=== PATIENT | female | born 1955 | race Caucasian/White ===

== ENCOUNTER 2019-02-04 16:04 | Emergency (ER) | payer MEDICARE, OTHER ==
[~2019-02-04] VITALS: Ht 157.5 cm; Wt 70.4 kg
[2019-02-04] MEDS ORDERED: IPRA4AER IH (16:27)
[2019-02-04 17:04] LABS: BASOPHILS % (AUTO) 0.4 % (0.0-2.0); EOSINOPHILS % (AUTO) 1.3 % (1.0-6.0); HEMATOCRIT 37.6 % (36-46); HEMOGLOBIN 12.6 g/dL (12.0-16.0); LYMPHOCYTES # (AUTO) 1.6 K/uL (1.0-4.8); LYMPHOCYTES % (AUTO) 27.9 % (22.0-44.0); MEAN CORPUSCULAR HEMOGLOBIN 30.1 pg (26.0-34.0); MEAN CORPUSCULAR HGB CONC 33.5 G/dL (31.0-37.0); MEAN CORPUSCULAR VOLUME 90 fL (80-100); MONOCYTES # (AUTO) 0.4 K/uL (0.1-1.0); MONOCYTES % (AUTO) 6.5 % (2.0-9.0); NEUTROPHILS # (AUTO) 3.7 K/uL (1.8-7.7); NEUTROPHILS % (AUTO) 63.9 % (40.0-70.0); PLATELET COUNT (AUTO) 234 K/uL (150-450); RED BLOOD CELL COUNT(AUTO) 4.19 MIL/uL (4.00-5.20); RED CELL DISTRIBUTION WIDTH 13.8 % (11.5-14.5)
[2019-02-04 17:18] LABS: ANION GAP 6 mmol/L (8-16); CALCIUM, TOTAL 9.1 mg/dL (8.8-10.5); CARBON DIOXIDE 29 mmol/L (22-29); CHLORIDE 106 mmol/L (98-107); CREATININE 0.89 mg/dL (0.60-1.30); GLOMERULAR FILTR. RATE CALC > 60 mL/min (>60); GLUCOSE,RANDOM 111 mg/dL (70-110); POTASSIUM 4.3 mmol/L (3.5-5.1); SODIUM SERUM 141 mmol/L (136-145); UREA NITROGEN, BLOOD 9 mg/dL (7-18)
[2019-02-04 17:24] LABS: ALANINE AMINOTRANSFERASE 19 U/L (12-78); ALBUMIN 3.3 g/dL (3.4-5.0); ALKALINE PHOSPHATASE 62 U/L (46-116); ASPARTATE AMINOTRANSFERASE 17 U/L (15-37); BILIRUBIN,TOTAL 0.2 mg/dL (0.1-1.0); TOTAL PROTEIN, SERUM 6.4 g/dL (6.4-8.2)
[2019-02-04] MEDS ORDERED: PB/HYOSCY/ATR/SCOP/LIDO/MAALOX 55 ML BOTTLE PO ONE (18:00)
[2019-02-04 19:00] VITALS: BP 138/81
== END 2019-02-04 19:35 | disposition home or self-care (01) ==
LOC: EMS 16:04
DX: K21.9 Gastro-esophageal reflux disease without esophagitis (principal); F41.9 Anxiety disorder, unspecified; J45.909 Unspecified asthma, uncomplicated
CPT/HCPCS: 93005

== ENCOUNTER 2019-10-13 17:23 | Emergency (ER) | payer MEDICARE ==
[~2019-10-13] VITALS: Ht 157.5 cm; Wt 75.0 kg
[~2019-10-13 17:23] MED LIST: IPRA4AER IH
[2019-10-13] MEDS ORDERED: RISP1 PO (17:29)
[2019-10-13] MEDS ORDERED: BENZ2TAB10 PO (17:29)
[2019-10-13] MEDS ORDERED: FLUO-191 PO (17:29)
[2019-10-13 21:30] VITALS: BP 122/82
[2019-10-13] MEDS ORDERED: IPRATROPIUM BROMIDE 0.5 MG/2.5 ML NEB SOLUTION NEB ONE (21:45)
[2019-10-13] MEDS ORDERED: ALBUTEROL SULFATE 2.5 MG/0.5 ML NEB SOLUTION NEB ONE (21:45)
== END 2019-10-13 21:58 | disposition home or self-care (01) ==
LOC: EMS 17:25
DX: J40 Bronchitis, not specified as acute or chronic (principal); J44.9 Chronic obstructive pulmonary disease, unspecified; Z79.899 Other long term (current) drug therapy

== ENCOUNTER 2022-01-31 21:51 | Inpatient (IN) | payer OTHER, MEDICAID ==
[~2022-01-31] VITALS: Ht 154.9 cm; Wt 73.8 kg
[~2022-01-31 21:51] MED LIST changes: +BENZ2TAB76 PO; +FLUO-177 PO; +RISP1TAB48 PO
[2022-01-31] MEDS ORDERED: ACETAMINOPHEN 500 MG TABLET PO ONE (22:30)
[2022-01-31] MEDS ORDERED: PANTOPRAZOLE SODIUM 40 MG/VIAL IVP ONE (22:30)
[2022-01-31 23:01] LABS: COVID AG,FIA SOURCE NASOPHARYNGEAL
[2022-01-31 23:04] LABS: BASOPHILS % (AUTO) 0.3 % (0.0-2.0); EOSINOPHILS % (AUTO) 0 % (1.0-6.0); HEMATOCRIT 40.9 % (36-46); LYMPHOCYTES % (AUTO) 9.1 % (22.0-44.0); MEAN CORPUSCULAR HEMOGLOBIN 29.5 pg (26.0-34.0); MEAN CORPUSCULAR HGB CONC 34.2 G/dL (31.0-37.0); MEAN CORPUSCULAR VOLUME 86 fL (80-100); MONOCYTES # (AUTO) 0.9 K/uL (0.1-1.0); MONOCYTES % (AUTO) 8.1 % (2.0-9.0); NEUTROPHILS # (AUTO) 8.8 K/uL (1.8-7.7); NEUTROPHILS % (AUTO) 82.5 % (40.0-70.0); PLATELET COUNT (AUTO) 244 K/uL (150-450); RED BLOOD CELL COUNT(AUTO) 4.75 MIL/uL (4.00-5.20); RED CELL DISTRIBUTION WIDTH 14.2 % (11.5-14.5)
[2022-01-31 23:11] LABS: ANION GAP 11 mmol/L (8-16); CALCIUM, TOTAL 8.5 mg/dL (8.8-10.5); CARBON DIOXIDE 24 mmol/L (22-29); CHLORIDE 100 mmol/L (98-107); CREATININE 0.89 mg/dL (0.60-1.30); GLOMERULAR FILTR. RATE CALC > 60 mL/min (>60); GLUCOSE,RANDOM 126 mg/dL (70-110); POTASSIUM 3.1 mmol/L (3.5-5.1); SODIUM SERUM 135 mmol/L (136-145); UREA NITROGEN, BLOOD 9 mg/dL (7-18)
[2022-01-31 23:18] LABS: ALANINE AMINOTRANSFERASE 15 U/L (12-78); ALBUMIN 3.6 g/dL (3.4-5.0); ALKALINE PHOSPHATASE 65 U/L (46-116); ASPARTATE AMINOTRANSFERASE 18 U/L (15-37); BILIRUBIN,TOTAL 1.1 mg/dL (0.1-1.0); INR 1.2 (0.9-1.1); LIPASE 38 U/L (73-393); PROTHROMBIN TIME 12.2 SEC (9.4-11.6); TOTAL PROTEIN, SERUM 7.1 g/dL (6.4-8.2)
[2022-01-31] MEDS ORDERED: POTASSIUM CHLORIDE 20 MEQ ER TABLET PO ONE (23:30)
[2022-02-01] MEDS ORDERED: ONDANSETRON HCL 4 MG/2 ML VIAL IVP ONE
[2022-02-01] MEDS: RINGERS SOLUTION,LACTATED 1,000 ML IV SCH ×2 (00:01→13:20)
[2022-02-01 00:22] LABS: PHOSPHORUS 2.2 mg/dL (2.5-4.9)
[2022-02-01] MEDS ORDERED: LIDOCAINE 5% TRANSDERMAL PATCH TD ONE (01:30)
[2022-02-01] MEDS ORDERED: MAGNESIUM SULFATE 4 GM/WATER 100 ML IV PRN (02:45)
[2022-02-01] MEDS ORDERED: POTASSIUM CHL 10 MEQ/WATER 50 ML IV PRN (02:45)
[2022-02-01] MEDS ORDERED: MAGNESIUM SULFATE 2 GM/WATER 50 ML IV PRN (02:45)
[2022-02-01] MEDS ORDERED: MAGNESIUM OXIDE 400 MG TABLET PO PRN (02:45)
[2022-02-01 03:24] LABS: APPEARANCE,URINE CLEAR (CLEAR); BILIRUBIN,URINE NEGATIVE (NEGATIVE); GLUCOSE, URINE (UA) NEGATIVE (NEGATIVE); LEUKOCYTE ESTERASE ,URINE SMALL (NEGATIVE); NITRATE,URINE NEGATIVE (NEGATIVE); OCCULT BLOOD,URINE MODERATE (NEGATIVE); PROTEIN,URINE 30-70 mg/dL (NEGATIVE); SPECIFIC GRAVITIY, URINE 1.017 (1.003-1.030); UROBILINOGEN,URINE <=1.0 mg/dL (<=1.0)
[2022-02-01 03:31] LABS: AMPHET/METH SCREEN,URINE NEGATIVE (NEGATIVE); BARBITURATE SCREEN, URINE NEGATIVE (NEGATIVE); BENZODIAZEPINES SCREEN,URINE NEGATIVE (NEGATIVE); CANNABINOID SCREEN,URINE POSITIVE (NEGATIVE); COCAINE SCREEN,URINE NEGATIVE (NEGATIVE); METHADONE SCREEN, URINE NEGATIVE (NEGATIVE); OPIATE SCREEN,URINE POSITIVE (NEGATIVE)
[2022-02-01 03:32] LABS: PHENCYCLIDINE SCREEN,URINE NEGATIVE (NEGATIVE)
[2022-02-01 03:37] LABS: BACTERIA,URINE None Seen /HPF (None Seen)
[2022-02-01] MEDS ORDERED: MORPHINE SULFATE 2 MG/ML SYRINGE IVP ONE (03:45)
[2022-02-01] MEDS: MORPHINE SULFATE 2 MG/ML SYRINGE IVP PRN ×2 (04:07→08:34)
[2022-02-01] MEDS: CefTRIAXone 1 GM/DEXTROSE 50 ML IV SCH (06:11)
[2022-02-01] MEDS: PANTOPRAZOLE SODIUM 40 MG/VIAL IVP SCH ×2 (08:17→23:03)
[2022-02-01] MEDS: FLUoxetine HCL 20 MG CAPSULE PO SCH (09:00)
[2022-02-01] MEDS: RisperiDONE 1 MG TABLET PO SCH ×2 (09:00→22:57)
[2022-02-01] MEDS: BENZTROPINE MESYLATE 2 MG TABLET PO SCH ×2 (09:00→23:03)
[2022-02-01] MEDS ORDERED: FentaNYL CITRATE PF 100 MCG/2 ML VIAL ONE (12:12)
[2022-02-01] MEDS ORDERED: MIDAZOLAM HCL 5 MG/ML VIAL ONE (12:12)
[2022-02-01] MEDS ORDERED: TRAZ-257 PO (12:19)
[2022-02-01] MEDS ORDERED: AMAN100C15 PO (12:19)
[2022-02-01] MEDS ORDERED: UMEC62.5 IH (12:19)
[2022-02-01] MEDS ORDERED: VALB40CA2 PO (12:19)
[2022-02-01] MEDS ORDERED: OMEP20CA12 PO (12:19)
[2022-02-01] MEDS ORDERED: QUET50TA24 PO (12:19)
[2022-02-01] MEDS ORDERED: BUDE10.2 IH (12:19)
[2022-02-01] MEDS ORDERED: BACL10TA PO (12:19)
[2022-02-01] MEDS ORDERED: FLUO-176 PO (12:19)
[2022-02-01 21:04] VITALS: BP 133/80
[2022-02-02] MEDS: RINGERS SOLUTION,LACTATED 1,000 ML IV SCH ×2 (02:40→16:00)
[2022-02-02 04:20] VITALS: BP 127/81
[2022-02-02] MEDS: CefTRIAXone 1 GM/DEXTROSE 50 ML IV SCH (06:15)
[2022-02-02] MEDS ORDERED: SODIUM CHLORIDE 0.9% 100 ML ONE (06:16)
[2022-02-02 06:50] LABS: BASOPHILS % (AUTO) 0.4 % (0.0-2.0); EOSINOPHILS % (AUTO) 0.7 % (1.0-6.0); HEMATOCRIT 33.7 % (36-46); HEMOGLOBIN 11.6 g/dL (12.0-16.0); LYMPHOCYTES # (AUTO) 1.6 K/uL (1.0-4.8); LYMPHOCYTES % (AUTO) 24.7 % (22.0-44.0); MEAN CORPUSCULAR HEMOGLOBIN 29.8 pg (26.0-34.0); MEAN CORPUSCULAR HGB CONC 34.4 G/dL (31.0-37.0); MEAN CORPUSCULAR VOLUME 87 fL (80-100); MONOCYTES # (AUTO) 0.7 K/uL (0.1-1.0); MONOCYTES % (AUTO) 10.5 % (2.0-9.0); NEUTROPHILS # (AUTO) 4.2 K/uL (1.8-7.7); NEUTROPHILS % (AUTO) 63.7 % (40.0-70.0); PLATELET COUNT (AUTO) 170 K/uL (150-450); RED BLOOD CELL COUNT(AUTO) 3.89 MIL/uL (4.00-5.20); RED CELL DISTRIBUTION WIDTH 14.6 % (11.5-14.5)
[2022-02-02 07:02] LABS: ANION GAP 10 mmol/L (8-16); CALCIUM, TOTAL 8.2 mg/dL (8.8-10.5); CARBON DIOXIDE 26 mmol/L (22-29); CHLORIDE 101 mmol/L (98-107); CREATININE 0.74 mg/dL (0.60-1.30); GLOMERULAR FILTR. RATE CALC > 60 mL/min (>60); GLUCOSE,RANDOM 98 mg/dL (70-110); POTASSIUM 3.2 mmol/L (3.5-5.1); SODIUM SERUM 137 mmol/L (136-145); UREA NITROGEN, BLOOD 9 mg/dL (7-18)
[2022-02-02 08:06] VITALS: BP 124/71
[2022-02-02] MEDS: RisperiDONE 1 MG TABLET PO SCH ×2 (08:18→20:48)
[2022-02-02] MEDS: BENZTROPINE MESYLATE 2 MG TABLET PO SCH ×2 (08:18→20:48)
[2022-02-02] MEDS: PANTOPRAZOLE SODIUM 40 MG/VIAL IVP SCH ×2 (08:18→20:48)
[2022-02-02] MEDS: FLUoxetine HCL 20 MG CAPSULE PO SCH (08:18)
[2022-02-02] MEDS: POTASSIUM CHLORIDE 20 MEQ ER TABLET PO PRN ×2 (08:19→16:45)
[2022-02-02] MEDS: MORPHINE SULFATE 2 MG/ML SYRINGE IVP PRN (14:53)
[2022-02-02 15:55] VITALS: BP 119/61
[2022-02-02] MEDS ORDERED: OXYB-34 PO (18:25)
[2022-02-02] MEDS ORDERED: ALBU8HFA IH (18:25)
[2022-02-02] MEDS ORDERED: HALOPERIDOL LACTATE 5 MG/ML VIAL IM ONE ×2 (18:30→22:00)
[2022-02-02 19:18] VITALS: BP 124/66
[2022-02-02] MEDS: TraZODone HCL 100 MG TABLET PO SCH (20:48)
[2022-02-03 03:42] VITALS: BP 115/62
[2022-02-03] MEDS: RINGERS SOLUTION,LACTATED 1,000 ML IV SCH ×2 (05:20→18:40)
[2022-02-03] MEDS: CefTRIAXone 1 GM/DEXTROSE 50 ML IV SCH (06:00)
[2022-02-03 07:08] VITALS: BP 127/74
[2022-02-03] MEDS: RisperiDONE 1 MG TABLET PO SCH ×2 (07:59→20:58)
[2022-02-03] MEDS: FLUoxetine HCL 20 MG CAPSULE PO SCH (07:59)
[2022-02-03] MEDS: BENZTROPINE MESYLATE 2 MG TABLET PO SCH ×2 (07:59→20:57)
[2022-02-03] MEDS: PANTOPRAZOLE SODIUM 40 MG/VIAL IVP SCH (07:59)
[2022-02-03] MEDS ORDERED: POTASSIUM PHOS,M-BASIC-D-BASIC 20 MEQ in DEXTROSE 5%-WATER 100 ML IV ONE (12:00)
[2022-02-03] MEDS ORDERED: CefTRIAXone SODIUM 1 GM/VIAL IM ONE ×2 (12:15→14:15)
[2022-02-03 12:53] LABS: BASOPHILS % (AUTO) 0.5 % (0.0-2.0); EOSINOPHILS % (AUTO) 0.4 % (1.0-6.0); HEMATOCRIT 35.8 % (36-46); HEMOGLOBIN 11.9 g/dL (12.0-16.0); LYMPHOCYTES # (AUTO) 1.8 K/uL (1.0-4.8); LYMPHOCYTES % (AUTO) 21.2 % (22.0-44.0); MEAN CORPUSCULAR HEMOGLOBIN 29.3 pg (26.0-34.0); MEAN CORPUSCULAR HGB CONC 33.3 G/dL (31.0-37.0); MEAN CORPUSCULAR VOLUME 88 fL (80-100); MONOCYTES # (AUTO) 0.8 K/uL (0.1-1.0); MONOCYTES % (AUTO) 9.2 % (2.0-9.0); NEUTROPHILS # (AUTO) 5.9 K/uL (1.8-7.7); NEUTROPHILS % (AUTO) 68.7 % (40.0-70.0); PLATELET COUNT (AUTO) 205 K/uL (150-450); RED BLOOD CELL COUNT(AUTO) 4.06 MIL/uL (4.00-5.20); RED CELL DISTRIBUTION WIDTH 14.5 % (11.5-14.5)
[2022-02-03 13:10] LABS: ANION GAP 9 mmol/L (8-16); CALCIUM, TOTAL 9.8 mg/dL (8.8-10.5); CARBON DIOXIDE 23 mmol/L (22-29); CHLORIDE 104 mmol/L (98-107); CREATININE 0.85 mg/dL (0.60-1.30); GLOMERULAR FILTR. RATE CALC > 60 mL/min (>60); GLUCOSE,RANDOM 132 mg/dL (70-110); POTASSIUM 4.1 mmol/L (3.5-5.1); SODIUM SERUM 136 mmol/L (136-145); UREA NITROGEN, BLOOD 10 mg/dL (7-18)
[2022-02-03 13:14] LABS: ALANINE AMINOTRANSFERASE 24 U/L (12-78); ALBUMIN 3.8 g/dL (3.4-5.0); ALKALINE PHOSPHATASE 56 U/L (46-116); ASPARTATE AMINOTRANSFERASE 48 U/L (15-37); BILIRUBIN,TOTAL 0.6 mg/dL (0.1-1.0); TOTAL PROTEIN, SERUM 7.2 g/dL (6.4-8.2)
[2022-02-03] MEDS ORDERED: LIDOCAINE/PF 1% 2 ML VIAL IM ONE (14:15)
[2022-02-03] MEDS: SODIUM,POTASSIUM PHOSPHATES POWDER PACKET PO SCH ×2 (15:17→20:58)
[2022-02-03 15:47] VITALS: BP 133/71
[2022-02-03 20:00] VITALS: BP 117/94
[2022-02-03] MEDS: TraZODone HCL 100 MG TABLET PO SCH (21:00)
[2022-02-04 05:30] VITALS: BP 138/82
[2022-02-04] MEDS: RINGERS SOLUTION,LACTATED 1,000 ML IV SCH ×2 (08:00→21:20)
[2022-02-04] MEDS: BENZTROPINE MESYLATE 2 MG TABLET PO SCH (09:37)
[2022-02-04] MEDS: FLUoxetine HCL 20 MG CAPSULE PO SCH (09:37)
[2022-02-04] MEDS: SODIUM,POTASSIUM PHOSPHATES POWDER PACKET PO SCH (09:38)
[2022-02-04] MEDS: RisperiDONE 1 MG TABLET PO SCH ×2 (09:38→21:47)
[2022-02-04] MEDS: PANTOPRAZOLE SODIUM 40 MG DR TABLET PO SCH (09:38)
[2022-02-04 09:52] VITALS: BP 111/70
[2022-02-04 15:28] VITALS: BP 130/81
[2022-02-04 19:45] VITALS: BP 140/77
[2022-02-04] MEDS ORDERED: IPRATROPIUM BROMIDE 0.5 MG/2.5 ML NEB SOLUTION NEB PRN (20:30)
[2022-02-04] MEDS ORDERED: ALBUTEROL SULFATE 2.5 MG/0.5 ML NEB SOLUTION NEB PRN (20:30)
[2022-02-04] MEDS ORDERED: ACETAMINOPHEN 325 MG TABLET PO PRN (20:30)
[2022-02-04] MEDS ORDERED: ZOLPIDEM TARTRATE 5 MG TABLET PO PRN (20:30)
[2022-02-04] MEDS ORDERED: MAGNESIUM HYDROXIDE SUSPENSION 30 ML UDCUP PO PRN (20:30)
[2022-02-04] MEDS ORDERED: BISACODYL 10 MG RECTAL RECTAL SUPPOSITORY PR PRN (20:30)
[2022-02-04] MEDS ORDERED: HYDROCODONE/ACETAMINOPHEN 5-325 MG TABLET PO PRN (20:30)
[2022-02-04] MEDS ORDERED: MORPHINE SULFATE 2 MG/ML SYRINGE IVP PRN (20:30)
[2022-02-04] MEDS ORDERED: ONDANSETRON HCL 4 MG/2 ML VIAL IVP PRN (20:30)
[2022-02-04] MEDS ORDERED: CefTRIAXone SODIUM 1 GM/VIAL IM SCH (20:30)
[2022-02-04] MEDS: DOCUSATE SODIUM 100 MG CAPSULE PO SCH (21:47)
[2022-02-04] MEDS: OMEPRAZOLE 20 MG CAPSULE PO SCH (21:47)
[2022-02-04] MEDS: BENZTROPINE MESYLATE 0.5 MG TABLET PO SCH (21:48)
[2022-02-04] MEDS: TraZODone HCL 100 MG TABLET PO SCH (21:50)
[2022-02-04] MEDS: LIDOCAINE/PF 1% 2 ML VIAL IM SCH (21:51)
[2022-02-04] MEDS: CefTRIAXone SODIUM 1 GM/VIAL IM SCH (21:51)
[2022-02-05 05:30] VITALS: BP 139/56
[2022-02-05 08:13] VITALS: BP 131/82
[2022-02-05] MEDS: BENZTROPINE MESYLATE 0.5 MG TABLET PO SCH (08:20)
[2022-02-05] MEDS: FLUoxetine HCL 20 MG CAPSULE PO SCH (08:20)
[2022-02-05] MEDS: DOCUSATE SODIUM 100 MG CAPSULE PO SCH (08:20)
[2022-02-05] MEDS: PANTOPRAZOLE SODIUM 40 MG DR TABLET PO SCH (08:20)
[2022-02-05] MEDS: RisperiDONE 1 MG TABLET PO SCH (08:21)
[2022-02-05] MEDS: OMEPRAZOLE 20 MG CAPSULE PO SCH (08:21)
[2022-02-05] MEDS ORDERED: OXYBUTYNIN CHLORIDE 5 MG ER TABLET PO SCH (09:00)
[2022-02-05] MEDS: LIDOCAINE/PF 1% 2 ML VIAL IM SCH (09:00)
[2022-02-05] MEDS: CefTRIAXone SODIUM 1 GM/VIAL IM SCH (09:00)
[2022-02-05] MEDS ORDERED: PANTOPRAZOLE SODIUM 40 MG/VIAL IVP SCH (09:00)
[2022-02-05] MEDS: RINGERS SOLUTION,LACTATED 1,000 ML IV SCH (10:40)
[2022-02-05 12:18] LABS: ALANINE AMINOTRANSFERASE 17 U/L (12-78); ALBUMIN 2.8 g/dL (3.4-5.0); ALKALINE PHOSPHATASE 45 U/L (46-116); ANION GAP 8 mmol/L (8-16); ASPARTATE AMINOTRANSFERASE 30 U/L (15-37); BILIRUBIN,TOTAL 0.5 mg/dL (0.1-1.0); CALCIUM, TOTAL 8.6 mg/dL (8.8-10.5); CARBON DIOXIDE 27 mmol/L (22-29); CHLORIDE 105 mmol/L (98-107); CREATININE 0.74 mg/dL (0.60-1.30); GLOMERULAR FILTR. RATE CALC > 60 mL/min (>60); GLUCOSE,RANDOM 97 mg/dL (70-110); SODIUM SERUM 140 mmol/L (136-145); TOTAL PROTEIN, SERUM 5.9 g/dL (6.4-8.2)
[2022-02-05 12:53] LABS: BASOPHILS % (AUTO) 0.5 % (0.0-2.0); EOSINOPHILS % (AUTO) 1.2 % (1.0-6.0); HEMATOCRIT 33.8 % (36-46); HEMOGLOBIN 11.5 g/dL (12.0-16.0); LYMPHOCYTES # (AUTO) 1.4 K/uL (1.0-4.8); MEAN CORPUSCULAR HEMOGLOBIN 29.5 pg (26.0-34.0); MEAN CORPUSCULAR HGB CONC 33.9 G/dL (31.0-37.0); MEAN CORPUSCULAR VOLUME 87 fL (80-100); MONOCYTES # (AUTO) 0.5 K/uL (0.1-1.0); MONOCYTES % (AUTO) 8.7 % (2.0-9.0); NEUTROPHILS # (AUTO) 3.6 K/uL (1.8-7.7); NEUTROPHILS % (AUTO) 64.6 % (40.0-70.0); PLATELET COUNT (AUTO) 174 K/uL (150-450); RED BLOOD CELL COUNT(AUTO) 3.89 MIL/uL (4.00-5.20); RED CELL DISTRIBUTION WIDTH 14.2 % (11.5-14.5)
[2022-02-05 15:06] VITALS: BP 134/78
[2022-02-05 15:56] LABS: COVID AG,FIA SOURCE NASAL SWAB
[2022-02-05 16:12] LABS: UREA NITROGEN, BLOOD 7 mg/dL (7-18)
[2022-02-05] MEDS ORDERED: AMOX TR/POT CLAV 875 MG/125 MG TABLET PO SCH (21:00)
[2022-02-05] MEDS ORDERED: LIDOCAINE/PF 1% 2 ML VIAL IM SCH (21:00)
== END 2022-02-05 18:00 | DRG 378 ==
LOC: EMS 21:54 → 6S 02-01 17:07
PROVIDERS: ADMIT Internal Medicine; ATTEND Internal Medicine
PROC: 0DB98ZX Excision of Duodenum, Via Natural or Artificial Opening Endoscopic, Diagnostic (ICD-10-PCS; 2022-02-01)
PROC: 0DB68ZX Excision of Stomach, Via Natural or Artificial Opening Endoscopic, Diagnostic (ICD-10-PCS; principal; 2022-02-01 12:00)
DX: K29.71 Gastritis, unspecified, with bleeding (principal); N39.0 Urinary tract infection, site not specified; E87.6 Hypokalemia; I10 Essential (primary) hypertension; E83.42 Hypomagnesemia; J44.9 Chronic obstructive pulmonary disease, unspecified; F20.9 Schizophrenia, unspecified; Z20.822 Contact with and (suspected) exposure to COVID-19; G24.01 Drug induced subacute dyskinesia; F17.200 Nicotine dependence, unspecified, uncomplicated
CPT/HCPCS: 70450; 71045; 80048; 80053; 81001; 82271; 83036; 83690; 83735; 84100; 84132; 85025; 85610; 85730; 86850; 86900; 86901; 87086; 88305; 88312; 88313; 93005; 93306; 93880; 99285; C9113; G0480; J0696; J1630; J2250; J2270; J2405; J3010; J3490; J7050; J7060; J7120; 36415-L1; 36415-TC

== ENCOUNTER 2022-02-05 18:00 | Inpatient (IN) | payer MEDICARE, MEDICAID ==
[~2022-02-05] VITALS: Ht 165.1 cm; Wt 69.9 kg
[2022-02-05 18:00] VITALS: BP 139/78
[~2022-02-05 18:00] MED LIST changes: +ALBU8HFA IH; +AMAN100C15 PO; +BACL10TA PO; -BENZ2TAB76 PO; +BUDE10.2 IH; +FLUO-176 PO; -FLUO-177 PO; -IPRA4AER IH; +OMEP20CA12 PO; +OXYB-34 PO; +QUET50TA24 PO; +TRAZ-257 PO; +UMEC62.5 IH; +VALB40CA2 PO
[2022-02-05] MEDS ORDERED: HALOPERIDOL 5 MG TABLET PO PRN (19:45)
[2022-02-05] MEDS ORDERED: ZOLPIDEM TARTRATE 10 MG TABLET PO PRN (19:45)
[2022-02-05] MEDS ORDERED: LOPERAMIDE HCL 2 MG CAPSULE PO PRN ×2 (22:00→22:30)
[2022-02-05] MEDS ORDERED: MAGNESIUM HYDROXIDE SUSPENSION 30 ML UDCUP PO PRN ×2 (22:00→22:30)
[2022-02-05] MEDS ORDERED: ONDANSETRON HCL 4 MG TABLET PO PRN ×2 (22:00→22:30)
[2022-02-05] MEDS ORDERED: BENZOCAINE/MENTHOL LOZENGE PO PRN ×2 (22:00→22:30)
[2022-02-05] MEDS ORDERED: OMEPRAZOLE 20 MG CAPSULE PO PRN ×2 (22:00→22:30)
[2022-02-05] MEDS ORDERED: ALBUTEROL SULFATE HFA 90 MCG/PUFF 8 GM INHALER IH PRN ×2 (22:00→22:30)
[2022-02-05] MEDS ORDERED: MAG HYDROX/AL HYDROX/SIMETH ES 30 ML SUSPENSION UDCUP PO PRN ×2 (22:00→22:30)
[2022-02-05] MEDS ORDERED: ACETAMINOPHEN 325 MG TABLET PO PRN (22:00)
[2022-02-05] MEDS ORDERED: DOCUSATE SODIUM 100 MG CAPSULE PO PRN ×2 (22:00→22:30)
[2022-02-05] MEDS ORDERED: IBUPROFEN 600 MG TABLET PO PRN (22:00)
[2022-02-05] MEDS ORDERED: PETROLATUM,WHITE 28 GM JELLY TP PRN ×2 (22:00→22:30)
[2022-02-05] MEDS ORDERED: BACITRACIN 28 GM OINTMENT TP PRN ×2 (22:00→22:30)
[2022-02-05] MEDS ORDERED: CloNIDine HCL 0.1 MG TABLET PO PRN ×2 (22:00→22:30)
[2022-02-06 06:04] LABS: BASOPHILS % (AUTO) 0.8 % (0.0-2.0); EOSINOPHILS % (AUTO) 2.3 % (1.0-6.0); HEMOGLOBIN 11.2 g/dL (12.0-16.0); LYMPHOCYTES # (AUTO) 1.3 K/uL (1.0-4.8); LYMPHOCYTES % (AUTO) 22.8 % (22.0-44.0); MEAN CORPUSCULAR HEMOGLOBIN 29.9 pg (26.0-34.0); MEAN CORPUSCULAR VOLUME 88 fL (80-100); MONOCYTES # (AUTO) 0.5 K/uL (0.1-1.0); MONOCYTES % (AUTO) 8.7 % (2.0-9.0); NEUTROPHILS # (AUTO) 3.7 K/uL (1.8-7.7); NEUTROPHILS % (AUTO) 65.4 % (40.0-70.0); PLATELET COUNT (AUTO) 195 K/uL (150-450); RED BLOOD CELL COUNT(AUTO) 3.76 MIL/uL (4.00-5.20); RED CELL DISTRIBUTION WIDTH 14.4 % (11.5-14.5)
[2022-02-06 06:23] LABS: ALANINE AMINOTRANSFERASE 15 U/L (12-78); ALBUMIN 2.9 g/dL (3.4-5.0); ALKALINE PHOSPHATASE 48 U/L (46-116); ANION GAP 9 mmol/L (8-16); ASPARTATE AMINOTRANSFERASE 29 U/L (15-37); BILIRUBIN,TOTAL 0.5 mg/dL (0.1-1.0); CALCIUM, TOTAL 8.4 mg/dL (8.8-10.5); CARBON DIOXIDE 27 mmol/L (22-29); CHLORIDE 102 mmol/L (98-107); CREATININE 0.79 mg/dL (0.60-1.30); GLOMERULAR FILTR. RATE CALC > 60 mL/min (>60); GLUCOSE,RANDOM 101 mg/dL (70-110); POTASSIUM 3.9 mmol/L (3.5-5.1); SODIUM SERUM 138 mmol/L (136-145); UREA NITROGEN, BLOOD 8 mg/dL (7-18)
[2022-02-06 08:00] VITALS: BP 128/65
[2022-02-06] MEDS ORDERED: PANTOPRAZOLE SODIUM 40 MG DR TABLET PO SCH (09:00)
[2022-02-06] MEDS: FLUoxetine HCL 20 MG CAPSULE PO SCH (09:42)
[2022-02-06] MEDS: AMOX TR/POT CLAV 875 MG/125 MG TABLET PO SCH ×2 (09:43→16:44)
[2022-02-06] MEDS: OMEPRAZOLE 20 MG CAPSULE PO SCH ×2 (09:43→16:44)
[2022-02-06] MEDS: RisperiDONE 1 MG TABLET PO SCH ×2 (09:43→16:44)
[2022-02-06] MEDS: DOCUSATE SODIUM 100 MG CAPSULE PO SCH ×2 (09:43→16:44)
[2022-02-06] MEDS: OXYBUTYNIN CHLORIDE 5 MG ER TABLET PO SCH (09:44)
[2022-02-06] MEDS: BENZTROPINE MESYLATE 0.5 MG TABLET PO SCH ×2 (09:44→16:44)
[2022-02-06] MEDS: IBUPROFEN 600 MG TABLET PO PRN (09:46)
[2022-02-06 09:47] VITALS: BP 123/65
[2022-02-06 10:47] VITALS: BP 128/68
[2022-02-06 16:30] VITALS: BP 131/72
[2022-02-07 08:06] VITALS: BP 126/77
[2022-02-07] MEDS: DOCUSATE SODIUM 100 MG CAPSULE PO SCH ×2 (08:42→16:28)
[2022-02-07] MEDS: RisperiDONE 1 MG TABLET PO SCH ×2 (08:42→16:28)
[2022-02-07] MEDS: OMEPRAZOLE 20 MG CAPSULE PO SCH ×2 (08:42→16:28)
[2022-02-07] MEDS: FLUoxetine HCL 20 MG CAPSULE PO SCH (08:42)
[2022-02-07] MEDS: OXYBUTYNIN CHLORIDE 5 MG ER TABLET PO SCH (08:43)
[2022-02-07] MEDS: AMOX TR/POT CLAV 875 MG/125 MG TABLET PO SCH ×2 (08:43→16:28)
[2022-02-07] MEDS: BENZTROPINE MESYLATE 0.5 MG TABLET PO SCH ×2 (08:43→16:28)
[2022-02-07 16:11] VITALS: BP 114/75
[2022-02-08] VITALS (7 sets, daily range): BP systolic 103–128; BP diastolic 60–88
[2022-02-08] MEDS: RisperiDONE 1 MG TABLET PO SCH ×2 (09:08→16:39)
[2022-02-08] MEDS: OMEPRAZOLE 20 MG CAPSULE PO SCH ×2 (09:08→16:39)
[2022-02-08] MEDS: BENZTROPINE MESYLATE 0.5 MG TABLET PO SCH ×2 (09:08→16:39)
[2022-02-08] MEDS: FLUoxetine HCL 20 MG CAPSULE PO SCH (09:08)
[2022-02-08] MEDS: DOCUSATE SODIUM 100 MG CAPSULE PO SCH ×2 (09:08→16:39)
[2022-02-08] MEDS: AMOX TR/POT CLAV 875 MG/125 MG TABLET PO SCH ×2 (09:09→16:39)
[2022-02-08] MEDS: OXYBUTYNIN CHLORIDE 5 MG ER TABLET PO SCH (09:09)
[2022-02-08] MEDS: IBUPROFEN 600 MG TABLET PO PRN ×2 (09:16→15:58)
[2022-02-08] MEDS: ACETAMINOPHEN 325 MG TABLET PO PRN (21:08)
[2022-02-09 00:20] VITALS: BP 129/79
[2022-02-09] MEDS: LORazepam 2 MG TABLET PO PRN ×2 (00:28→09:17)
[2022-02-09] MEDS: OMEPRAZOLE 20 MG CAPSULE PO SCH ×2 (08:32→16:38)
[2022-02-09] MEDS: FLUoxetine HCL 20 MG CAPSULE PO SCH (08:32)
[2022-02-09] MEDS: OXYBUTYNIN CHLORIDE 5 MG ER TABLET PO SCH (08:33)
[2022-02-09] MEDS: RisperiDONE 1 MG TABLET PO SCH ×2 (08:33→16:38)
[2022-02-09] MEDS: DOCUSATE SODIUM 100 MG CAPSULE PO SCH ×2 (08:33→16:38)
[2022-02-09] MEDS: BENZTROPINE MESYLATE 0.5 MG TABLET PO SCH ×2 (08:33→16:38)
[2022-02-09 09:15] VITALS: BP 136/90
[2022-02-09] MEDS: IBUPROFEN 600 MG TABLET PO PRN (09:17)
[2022-02-09 16:51] VITALS: BP 132/72
[2022-02-10] MEDS: FLUoxetine HCL 20 MG CAPSULE PO SCH (10:00)
[2022-02-10] MEDS: DOCUSATE SODIUM 100 MG CAPSULE PO SCH ×2 (10:00→16:17)
[2022-02-10] MEDS: OMEPRAZOLE 20 MG CAPSULE PO SCH ×2 (10:00→16:17)
[2022-02-10] MEDS: RisperiDONE 1 MG TABLET PO SCH ×2 (10:01→16:16)
[2022-02-10] MEDS: OXYBUTYNIN CHLORIDE 5 MG ER TABLET PO SCH (10:01)
[2022-02-10] MEDS: BENZTROPINE MESYLATE 0.5 MG TABLET PO SCH ×2 (10:01→16:16)
[2022-02-10 10:02] VITALS: BP 124/69
[2022-02-10 16:16] VITALS: BP 125/72
[2022-02-11 08:31] LABS: COVID AG,FIA SOURCE NASAL SWAB
[2022-02-11 09:24] VITALS: BP 129/76
[2022-02-11] MEDS: DOCUSATE SODIUM 100 MG CAPSULE PO SCH ×2 (09:57→16:14)
[2022-02-11] MEDS: OXYBUTYNIN CHLORIDE 5 MG ER TABLET PO SCH (09:57)
[2022-02-11] MEDS: OMEPRAZOLE 20 MG CAPSULE PO SCH ×2 (09:57→16:14)
[2022-02-11] MEDS: FLUoxetine HCL 20 MG CAPSULE PO SCH (09:57)
[2022-02-11] MEDS: RisperiDONE 1 MG TABLET PO SCH ×2 (09:57→16:12)
[2022-02-11] MEDS: BENZTROPINE MESYLATE 0.5 MG TABLET PO SCH ×2 (09:58→16:12)
[2022-02-11 17:29] VITALS: BP 140/86
[2022-02-11 21:39] VITALS: BP 135/85
[2022-02-11] MEDS: ACETAMINOPHEN 325 MG TABLET PO PRN (21:39)
[2022-02-11 22:39] VITALS: BP 132/83
[2022-02-12 08:07] VITALS: BP 126/91
[2022-02-12] MEDS: OMEPRAZOLE 20 MG CAPSULE PO SCH ×2 (08:48→16:05)
[2022-02-12] MEDS: DOCUSATE SODIUM 100 MG CAPSULE PO SCH ×2 (08:49→16:05)
[2022-02-12] MEDS: BENZTROPINE MESYLATE 0.5 MG TABLET PO SCH ×2 (08:49→16:05)
[2022-02-12] MEDS: RisperiDONE 1 MG TABLET PO SCH ×2 (08:49→16:04)
[2022-02-12] MEDS: FLUoxetine HCL 20 MG CAPSULE PO SCH (08:49)
[2022-02-12] MEDS: OXYBUTYNIN CHLORIDE 5 MG ER TABLET PO SCH (08:49)
[2022-02-12] MEDS: IBUPROFEN 600 MG TABLET PO PRN (13:06)
[2022-02-12 16:11] VITALS: BP 122/76
[2022-02-13 04:02] VITALS: BP 115/87
[2022-02-13 05:57] LABS: APPEARANCE,URINE CLEAR (CLEAR); BILIRUBIN,URINE NEGATIVE (NEGATIVE); GLUCOSE, URINE (UA) NEGATIVE (NEGATIVE); KETONES,URINE NEGATIVE (NEGATIVE); LEUKOCYTE ESTERASE ,URINE NEGATIVE (NEGATIVE); NITRATE,URINE NEGATIVE (NEGATIVE); OCCULT BLOOD,URINE NEGATIVE (NEGATIVE); PROTEIN,URINE NEGATIVE (NEGATIVE); SPECIFIC GRAVITIY, URINE 1.014 (1.003-1.030); UROBILINOGEN,URINE <=1.0 mg/dL (<=1.0)
[2022-02-13 08:00] VITALS: BP 145/90
[2022-02-13] MEDS: BENZTROPINE MESYLATE 0.5 MG TABLET PO SCH ×2 (08:15→16:50)
[2022-02-13] MEDS: OXYBUTYNIN CHLORIDE 5 MG ER TABLET PO SCH (08:15)
[2022-02-13] MEDS: RisperiDONE 1 MG TABLET PO SCH ×2 (08:15→16:50)
[2022-02-13] MEDS: OMEPRAZOLE 20 MG CAPSULE PO SCH ×2 (08:15→16:50)
[2022-02-13] MEDS: DOCUSATE SODIUM 100 MG CAPSULE PO SCH ×2 (08:15→16:50)
[2022-02-13] MEDS: FLUoxetine HCL 20 MG CAPSULE PO SCH (08:15)
[2022-02-13 16:03] VITALS: BP 137/65
[2022-02-13] MEDS ORDERED: NICOTINE 14 MG/24 HOUR PATCH TD PRN (17:15)
[2022-02-13] MEDS: LORazepam 2 MG TABLET PO PRN (19:59)
[2022-02-14 00:14] VITALS: BP 133/76
[2022-02-14] MEDS: LORazepam 2 MG TABLET PO PRN (00:30)
[2022-02-14 08:56] VITALS: BP 136/81
[2022-02-14] MEDS: OXYBUTYNIN CHLORIDE 5 MG ER TABLET PO SCH (09:09)
[2022-02-14] MEDS: DOCUSATE SODIUM 100 MG CAPSULE PO SCH ×3 (09:09→17:58)
[2022-02-14] MEDS: BENZTROPINE MESYLATE 0.5 MG TABLET PO SCH ×3 (09:09→17:57)
[2022-02-14] MEDS: FLUoxetine HCL 20 MG CAPSULE PO SCH (09:09)
[2022-02-14] MEDS: RisperiDONE 1 MG TABLET PO SCH ×3 (09:09→17:57)
[2022-02-14] MEDS: OMEPRAZOLE 20 MG CAPSULE PO SCH ×3 (09:10→17:58)
[2022-02-14 16:27] VITALS: BP 128/80
[2022-02-15 08:35] VITALS: BP 104/64
[2022-02-15] MEDS: BENZTROPINE MESYLATE 0.5 MG TABLET PO SCH ×2 (08:38→18:01)
[2022-02-15] MEDS: OMEPRAZOLE 20 MG CAPSULE PO SCH ×2 (08:38→18:01)
[2022-02-15] MEDS: DOCUSATE SODIUM 100 MG CAPSULE PO SCH ×2 (08:38→18:01)
[2022-02-15] MEDS: RisperiDONE 1 MG TABLET PO SCH ×2 (08:38→18:01)
[2022-02-15] MEDS: OXYBUTYNIN CHLORIDE 5 MG ER TABLET PO SCH (08:39)
[2022-02-15] MEDS: FLUoxetine HCL 20 MG CAPSULE PO SCH (08:39)
[2022-02-15 16:09] VITALS: BP 131/77
[2022-02-16] MEDS: FLUoxetine HCL 20 MG CAPSULE PO SCH (08:31)
[2022-02-16] MEDS: DOCUSATE SODIUM 100 MG CAPSULE PO SCH (08:31)
[2022-02-16] MEDS: RisperiDONE 1 MG TABLET PO SCH (08:32)
[2022-02-16] MEDS: OMEPRAZOLE 20 MG CAPSULE PO SCH (08:32)
[2022-02-16] MEDS: BENZTROPINE MESYLATE 0.5 MG TABLET PO SCH (08:32)
[2022-02-16] MEDS: OXYBUTYNIN CHLORIDE 5 MG ER TABLET PO SCH (08:32)
[2022-02-16 08:37] LABS: % IRON SATURATION 21.4 % (22-44)
[2022-02-16] MEDS ORDERED: BENZ0.5T49 PO (11:53)
[2022-02-16] MEDS ORDERED: FLUO20CA36 PO (11:54)
== END 2022-02-16 14:55 | disposition home or self-care (01) | DRG 885 ==
LOC: 3EI 18:00
PROVIDERS: ADMIT Psychiatry & Neurology Psychiatry; ATTEND Psychiatry & Neurology Psychiatry
DX: F20.9 Schizophrenia, unspecified (principal); N39.0 Urinary tract infection, site not specified; F41.9 Anxiety disorder, unspecified; I10 Essential (primary) hypertension; J44.9 Chronic obstructive pulmonary disease, unspecified; K21.9 Gastro-esophageal reflux disease without esophagitis; E66.9 Obesity, unspecified; Z20.822 Contact with and (suspected) exposure to COVID-19; K59.00 Constipation, unspecified; R32 Unspecified urinary incontinence; Z72.0 Tobacco use; Z68.25 Body mass index [BMI] 25.0-25.9, adult; Z79.899 Other long term (current) drug therapy
CPT/HCPCS: 80053; 81003; 83540; 83550; 85025; 87081; Q0162

== ENCOUNTER 2025-08-09 19:10 | Emergency (ER) | payer MEDICARE, OTHER ==
[~2025-08-09] VITALS: Ht 160 cm; Wt 72.7 kg
[~2025-08-09 19:10] MED LIST changes: -ALBU8HFA IH; -AMAN100C15 PO; -BACL10TA PO; +BENZ0.5T52 PO; -BUDE10.2 IH; +CEPH-558 PO; -FLUO-176 PO; +FLUO-418 PO; -OMEP20CA12 PO; -QUET50TA24 PO; -TRAZ-257 PO; -UMEC62.5 IH; -VALB40CA2 PO
[2025-08-09 20:25] VITALS: TEMP 97.7
[2025-08-09 20:26] LABS: PLATELET COUNT (AUTO) 220 K/uL (150-450); RED BLOOD CELL COUNT(AUTO) 3.78 MIL/uL (4.00-5.20); RED CELL DISTRIBUTION WIDTH 14.9 % (11.5-14.5); WHITE BLOOD COUNT (AUTO) 6.9 K/uL (4.5-11.0)
[2025-08-09 20:32] LABS: CALCIUM, TOTAL 9.2 mg/dL (8.8-10.5); CREATININE 1.03 mg/dL (0.60-1.30); GLOMERULAR FILTR. RATE CALC 53.0 mL/min (>60); GLUCOSE,RANDOM 96.0 mg/dL (70-110); SODIUM SERUM 144.0 mmol/L (136-145); UREA NITROGEN, BLOOD 28.0 mg/dL (7-18)
[2025-08-09 20:54] LABS: COVID AG,FIA SOURCE NASAL SWAB
[2025-08-09 21:14] LABS: SARS-COV2 (COVID) ANTIGEN,FIA Negative (Negative)
[2025-08-09 22:37] VITALS: BP 120/72; PULSE 80; RESP 16; O2SAT 94
== END 2025-08-09 22:37 | disposition home or self-care (01) ==
LOC: EMS 19:10
DX: F41.9 Anxiety disorder, unspecified (principal); E78.00 Pure hypercholesterolemia, unspecified; F20.9 Schizophrenia, unspecified; F32.A Depression, unspecified; I11.0 Hypertensive heart disease with heart failure; J44.89 Other specified chronic obstructive pulmonary disease; M19.90 Unspecified osteoarthritis, unspecified site; Z95.0 Presence of cardiac pacemaker; Z79.899 Other long term (current) drug therapy; Z20.822 Contact with and (suspected) exposure to COVID-19
CPT/HCPCS: 80048; 85025; 36415; 99284; 87426; G0480